=== PATIENT | male | born 1955 | race Two or more races ===

== ENCOUNTER 2016-11-25 10:36 | Emergency (ER) | payer OTHER ==
[2016-11-25 10:47] VITALS: TEMP 98.2; BMI 24.7
[2016-11-25] MEDS ORDERED: traMADol HCL 50 MG TABLET PO ONE (11:18)
[2016-11-25] MEDS ORDERED: traMADol HCL 50 MG TABLET ONE (11:37)
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
[2016-11-25] MEDS ORDERED: IBUPROFEN 600 MG TABLET (FP) PO ONE ×2 (13:12→13:48)
[2016-11-25 14:17] VITALS: BP 108/63; PULSE 52
== END 2016-11-25 14:05 | disposition home or self-care (01) ==
LOC: JER 10:36
DX: M54.2 Cervicalgia (principal); M54.5 Low back pain; M54.6 Pain in thoracic spine; V13.4XXA Pedal cycle driver injured in collision with car, pick-up truck or van in traffic accident, initial encounter; Y92.414 Local residential or business street as the place of occurrence of the external cause; Y93.55 Activity, bike riding; Y99.8 Other external cause status
CPT/HCPCS: 70450-TC; 72070-TC; 72100-TC; 72125-TC; 73560-TC-LT; 99283-25